=== PATIENT | female | born 1955 | race Caucasian/White ===

== ENCOUNTER → 2020-07-19 | Outpatient (CLI) | payer MEDICARE, OTHER ==
[~2020-07-19] MED LIST: ACTEMRA162 MG/0.9 SQ; AUGMENTIN 875-1 EACH PO; BYSTOLIC10 MG PO; COZAAR100 MG PO; METHOTREXATE2.5 MG PO; SEROQUEL50 MG PO
== END ==
LOC: EXRD 13:45
DX: M05.79 Rheumatoid arthritis with rheumatoid factor of multiple sites without organ or systems involvement (principal); E55.9 Vitamin D deficiency, unspecified; M85.80 Other specified disorders of bone density and structure, unspecified site; M19.042 Primary osteoarthritis, left hand; M19.041 Primary osteoarthritis, right hand
CPT/HCPCS: 73130